=== PATIENT | female | born 1980 | race Hispanic/Latino ===

== ENCOUNTER 2024-01-13 13:17 | Emergency (ER) | payer SELFPAY ==
[~2024-01-13] VITALS: Ht 152.4 cm; Wt 68.0 kg
[~2024-01-13 13:17] MED LIST: PRE-NATAL PO
[2024-01-13 13:30] VITALS: BP 129/59
[2024-01-13] MEDS ORDERED: HYDROcodone 5 MG/Acetaminophen 325 MG/COMBO PO ONE (13:30)
[2024-01-13 13:46] VITALS: BP 111/54
[2024-01-13 14:00] VITALS: BP 128/78
[2024-01-13 14:15] VITALS: BP 117/61
[2024-01-13 14:30] VITALS: BP 117/76
[2024-01-13 14:34] VITALS: BP 117/56
[2024-01-13] MEDS ORDERED: TRAMADOL HYDROC50 M1 PO (14:40)
[2024-01-13] MEDS ORDERED: NAPROXEN500 MG PO (14:40)
[2024-01-13] MEDS ORDERED: LORTAB 1010 MG PO ×3 (14:45→15:07)
== END 2024-01-13 14:40 | disposition home or self-care (01) | DRG 563 ==
LOC: ED 13:17
DX: S82.001A Unspecified fracture of right patella, initial encounter for closed fracture (principal); W01.0XXA Fall on same level from slipping, tripping and stumbling without subsequent striking against object, initial encounter; Y92.009 Unspecified place in unspecified non-institutional (private) residence as the place of occurrence of the external cause